=== PATIENT | male | born 1950 | race Caucasian/White ===

== ENCOUNTER → 2019-07-10 | Outpatient (CLI) | payer MEDICARE | END | disposition home or self-care (01) | LOC: SHCH 09:49 | PROVIDERS: ATTEND Internal Medicine Cardiovascular Disease | DX: I35.1 Nonrheumatic aortic (valve) insufficiency (principal); I34.0 Nonrheumatic mitral (valve) insufficiency | CPT/HCPCS: 93306 ==

== ENCOUNTER → 2023-03-31 | Outpatient (CLI) | payer MEDICARE | END | disposition home or self-care (01) | LOC: LAB 14:22 | PROVIDERS: ATTEND Internal Medicine Cardiovascular Disease | DX: R60.9 Edema, unspecified (principal); I50.32 Chronic diastolic (congestive) heart failure | CPT/HCPCS: 36415; 83735 ==

== ENCOUNTER → 2023-11-12 | Outpatient (CLI) | payer MEDICARE ==
[2023-11-12 15:53] LABS: % IRON SATURATION 4.7 % (30-44)
== END | disposition home or self-care (01) ==
LOC: LAB 14:42
PROVIDERS: ATTEND Internal Medicine Cardiovascular Disease
DX: I50.33 Acute on chronic diastolic (congestive) heart failure (principal); D64.9 Anemia, unspecified; Z79.899 Other long term (current) drug therapy
CPT/HCPCS: 36415; 82607; 82747; 83540; 83550; 83880

== ENCOUNTER → 2023-11-17 | Outpatient (CLI) | payer MEDICARE | END | disposition home or self-care (01) | LOC: LAB 10:00 | PROVIDERS: ATTEND Internal Medicine Cardiovascular Disease | DX: I50.33 Acute on chronic diastolic (congestive) heart failure (principal); D64.9 Anemia, unspecified | CPT/HCPCS: 82270 ==

== ENCOUNTER → 2023-11-18 | Outpatient (CLI) | payer MEDICARE | END | disposition home or self-care (01) | LOC: LAB 10:00 | PROVIDERS: ATTEND Internal Medicine Cardiovascular Disease | DX: I50.33 Acute on chronic diastolic (congestive) heart failure (principal) | CPT/HCPCS: 82270 ==

== ENCOUNTER → 2023-11-19 | Outpatient (CLI) | payer MEDICARE | END | disposition home or self-care (01) | LOC: LAB 10:00 | PROVIDERS: ATTEND Internal Medicine Cardiovascular Disease | DX: I50.33 Acute on chronic diastolic (congestive) heart failure (principal); D64.9 Anemia, unspecified; Z79.899 Other long term (current) drug therapy | CPT/HCPCS: 82270 ==

== ENCOUNTER → 2024-06-29 | Outpatient (CLI) | payer MEDICARE | END | disposition home or self-care (01) | LOC: SHCH 12:54 | PROVIDERS: ATTEND Internal Medicine Cardiovascular Disease | DX: I34.0 Nonrheumatic mitral (valve) insufficiency (principal) | CPT/HCPCS: 93306 ==

== ENCOUNTER → 2024-08-25 | Outpatient (CLI) | payer MEDICARE ==
[2024-08-25 15:32] LABS: BASOPHILS # (AUTO) 0.05 K/uL (0.00-0.20); BASOPHILS % (AUTO) 0.7 % (0.0-5.0); EOSINOPHILS # (AUTO) 0.26 K/uL (0.00-0.70); EOSINOPHILS % (AUTO) 3.6 % (0.0-8.0); HEMATOCRIT 32.5 % (42-54); IMMATURE GRANULOCYTE ABSOLUTE 0.03 K/uL (0-1); LYMPHOCYTES # (AUTO) 1.9 K/uL (1.0-4.8); LYMPHOCYTES % (AUTO) 25.6 % (21.0-51.0); MEAN CORPUSCULAR HEMOGLOBIN 28.1 pg (27.0-33.0); MEAN CORPUSCULAR HGB CONC 30.8 g/dL (32.0-36.0); MEAN CORPUSCULAR VOLUME 91.3 fL (79-99); MONOCYTES # (AUTO) 1.3 K/uL (0.1-1.0); MONOCYTES % (AUTO) 17.6 % (3.0-13.0); NEUTROPHILS # (AUTO) 3.8 K/uL (1.8-7.7); NEUTROPHILS % (AUTO) 52.1 % (40.0-77.0); PLATELET COUNT (AUTO) 206 K/uL (130-400); RED BLOOD CELL COUNT(AUTO) 3.56 MIL/uL (4.50-6.20); RED CELL DISTRIBUTION WIDTH 17.2 % (11.0-15.5); WHITE BLOOD COUNT (AUTO) 7.3 K/uL (4.8-10.8)
[2024-08-25 15:41] LABS: CREATININE 1.1 mg/dL (0.5-1.3); POTASSIUM 4.3 mmol/L (3.5-5.1)
[2024-08-25 16:35] LABS: B-TYPE NATRIURETIC PEPTIDE 1390 pg/mL (0-100)
== END | disposition home or self-care (01) ==
LOC: LAB 13:53
PROVIDERS: ATTEND Internal Medicine Cardiovascular Disease
DX: I10 Essential (primary) hypertension (principal)
CPT/HCPCS: 36415; 80048; 83880; 85025

== ENCOUNTER 2024-09-05 12:32 | Day surgery (SDC) | payer MEDICARE ==
--- NOTE | 2024-09-01 12:03 | EKG ---
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
[2024-09-01 12:09] LABS: BASOPHILS # (AUTO) 0.09 K/uL (0.00-0.20); BASOPHILS % (AUTO) 1.5 % (0.0-5.0); EOSINOPHILS % (AUTO) 6.5 % (0.0-8.0); HEMATOCRIT 32.6 % (42-54); IMMATURE GRANULOCYTE ABSOLUTE 0.01 K/uL (0-1); LYMPHOCYTES # (AUTO) 2.2 K/uL (1.0-4.8); LYMPHOCYTES % (AUTO) 36.1 % (21.0-51.0); MEAN CORPUSCULAR HEMOGLOBIN 28.7 pg (27.0-33.0); MEAN CORPUSCULAR HGB CONC 31.3 g/dL (32.0-36.0); MEAN CORPUSCULAR VOLUME 91.8 fL (79-99); MONOCYTES # (AUTO) 0.9 K/uL (0.1-1.0); NEUTROPHILS # (AUTO) 2.6 K/uL (1.8-7.7); NEUTROPHILS % (AUTO) 41.7 % (40.0-77.0); PLATELET COUNT (AUTO) 242 K/uL (130-400); RED BLOOD CELL COUNT(AUTO) 3.55 MIL/uL (4.50-6.20); RED CELL DISTRIBUTION WIDTH 17.2 % (11.0-15.5); WHITE BLOOD COUNT (AUTO) 6.2 K/uL (4.8-10.8)
[2024-09-01 12:11] LABS: APPEARANCE,URINE CLEAR (CLEAR); BILIRUBIN,URINE NEGATIVE (NEGATIVE); COLOR,URINE COLORLESS (YELLOW); GLUCOSE, URINE (UA) NEGATIVE (NEGATIVE); KETONES,URINE NEGATIVE (NEGATIVE); LEUKOCYTE ESTERASE ,URINE NEGATIVE Leu/uL (NEGATIVE); NITRATE,URINE NEGATIVE (NEGATIVE); OCCULT BLOOD,URINE NEGATIVE (NEGATIVE); PROTEIN,URINE NEGATIVE (NEGATIVE); UROBILINOGEN,URINE 0.2 mg/dL (0.2-1.0)
[2024-09-01 12:22] LABS: ADD UA MICROSCOPIC NO
[2024-09-01 12:35] LABS: INR 1.07 (0.85-1.15); PROTHROMBIN TIME 11.5 SEC (9.6-11.6)
[2024-09-01 12:36] LABS: PARTIAL THROMBOPLASTIN TIME 29.3 SEC (26.3-35.5)
[2024-09-01 12:42] LABS: CREATININE 1.1 mg/dL (0.5-1.3); POTASSIUM 4.5 mmol/L (3.5-5.1)
[2024-09-01 12:51] LABS: B-TYPE NATRIURETIC PEPTIDE 977 pg/mL (0-100)
[2024-09-01 12:55] VITALS: BP 145/48; PULSE 60; RESP 14; TEMP 97.5
--- NOTE | 2024-09-01 14:23 | HMCIMG ---
CHEST 1VW REASON: PREOP COMPARISON: 11/25/2007 FINDINGS: Single view of the chest was obtained. Lungs are clear. There is borderline heart size. There is no pulmonary vascular congestion. There are minimal bilateral pleural effusions. Mediastinum and bony thorax appear unremarkable. IMPRESSION: 1. Borderline heart size, there are minimal bilateral pleural effusions, there is no pulmonary vascular congestion.
--- NOTE | 2024-09-04 15:19 | NUR ---
RE: CXR REPORTED CXR RESULTS TO LOUIS GALVIN NP. NO NEW ORDERS RECEIVED.
[2024-09-05] VITALS (9 sets, daily range): BP systolic 142–174; BP diastolic 56–71; PULSE 65–86; RESP 13–22; TEMP 97–97.3
[~2024-09-05] VITALS: Ht 167.6 cm; Wt 71.4 kg
[~2024-09-05 12:32] MED LIST: AMLO-257 PO; ASCO1TAB40 PO; ASPI-1197 PO; ATOR10 PO; CARV12.511 PO; CHOL-34 PO; CLOM50CA PO; FURO40TA5 PO; LOSA-424 PO; OCTR30VI3 IM; SERT-440 PO; TELO250T PO
[2024-09-05] MEDS: 0.9%NACL 1000ML 1,000 ML IV SCH (13:09)
[2024-09-05] MEDS ORDERED: IOHEXOL-350 50ML VIAL IV ONE (16:29)
[2024-09-05] MEDS ORDERED: HEParin 10,000 UNIT/10ML (1,000 UNIT/ML) VIAL ONE (16:29)
[2024-09-05] MEDS ORDERED: LIDOCAINE HCL 400MG/20ML VIAL ONE (16:29)
[2024-09-05] MEDS ORDERED: HEParin-NS 1,000 UNIT/500 ML 1,000 ML IV ONE (16:29)
[2024-09-05] MEDS ORDERED: IOHEXOL 350 MG/ML 100ML INFUS..BTL IV ONE (16:29)
[2024-09-05] MEDS ORDERED: NITROGLYCERIN 50MG VIAL ONE (16:30)
[2024-09-05] MEDS ORDERED: BIVALIRUDIN 250 MG/VIAL IV ONE (16:32)
[2024-09-05] MEDS ORDERED: FENTanyl CITRate PF 50 MCG/1 ML 2ML VIAL ONE (16:35)
[2024-09-05] MEDS ORDERED: MIDAZOLAM HCL 1 MG/ML 2ML VIAL ONE (16:35)
--- NOTE | 2024-09-05 18:41 | PRN ---
DATE OF PROCEDURE: 09/05/2024 PROCEDURE PERFORMED: RIGHT AND LEFT HEART CATHETERIZATION, LEFT VENTRICULOGRAM, AORTOGRAM, LEFT AND RIGHT SELECTIVE CORONARY ANGIOGRAM, RIGHT COMMON FEMORAL ANGIOGRAM, PERCLOSE SUTURE CLOSURE OF THE RIGHT COMMON FEMORAL ARTERY, AND CONSCIOUS SEDATION INSPECTOR SCREEN PRINTING: Tristan Anthony MD, [facility] INDICATION: Acute on chronic systolic congestive heart failure, [id number] MR by 2D echo 06/29/2024, mild aortic regurgitation by 2D echo 06/29/2024, LVEF estimate of 40-45% by biplane Rankin method PROCEDURE NOTE: After informed consent was obtained the patient was prepped and draped in the usual sterile fashion. A seven [place] venous sheath with hemostatic valve was inserted into the right femoral vein using micropuncture technique with ultrasound guidance and a six [place] arterial sheath in the right common femoral artery using ultrasound guidance and micropuncture technique. This was performed after fluoroscopic identification of bony landmarks to facilitate a more accurate puncture of the right common femoral artery. The arterial and venous sheaths were aspirated and flushed. A seven [place] S tip [place] catheter was advanced using balloon floatation to the right heart with pressure measurements in the RA, RV, PA, and pulmonary capillary wedge positions. A 6 [place] pigtail catheter was then advanced over a J-tipped guidewire to the ascending aorta and was prolapsed into the left ventricle. The catheter was aspirated and flushed and pressure measurements were obtained including simultaneous pressure measurements of LVEDP and wedge pressure. A left ventriculogram was then performed in a 30 NJ projection. A pullback procedure was then performed, and an aortic root injection was performed in the same 30 degree NJ projection. The pigtail was then removed over a J-tip guidewire. A 6F JL-4 was then advanced to the ascending aorta over a J-tipped guidewire, was aspirated and flushed, and was used for selective left coronary angiograms in multiple obliquities. A JR-4 was advanced in a similar fashion to the ascending aorta over a J-tipped guidewire and was used for selective right coronary angiograms in multiple obliquities with findings as outlined below. A right common femoral angiogram was performed to assess suitability for Perclose suture closure and the Perclose device was deployed in standard fashion. Perclose suture closure was successful without bleeding or hematoma. The patient tolerated the procedure well and was returned to the holding area in stable condition. FINDINGS: RIGHT HEART CATHETERIZATION: RA pressure was 18 mm of mercury on the A-wave, 14 mm of mercury on the V-wave, and mean RA pressure was 12 mm of mercury. RV pressure was 66/14 mm of mercury. PA pressure was 66/30 mm of mercury with a mean PA pressure of 43 mm of mercury. Pulmonary capillary wedge pressure was 28 mm of mercury on the A-wave, 50 mm of mercury on the V-wave, and the mean pulmonary capillary wedge pressure was 30 mm of mercury. Cardiac output/cardiac input (thermodilution): 4.5 liters/minute with cardiac index of 2.4 liters/minute per meter squared Cardiac output/cardiac index (Janae): 5.6 liters/minute with cardiac index of 3.1 liters/minute per meter squared LEFT HEART HEMODYNAMICS: LVEDP was 15 mm of mercury prior to LV-gram in 17 mm of mercury after LV-gram. No aortic valve gradient on pullback procedure. LEFT VENTRICULOGRAM: The left ventriculogram in a 30 degree NJ projection demonstrated mild global hypokinesis with an LVEF of 45 to 50% by single plane planimetry. There was 2+ to 3+ mitral regurgitation by left ventriculogram. AORTIC ROOT INJECTION: The aortic root injection (20 mL per second for 40 seconds) demonstrated 1+ aortic insufficiency. CORONARY ANGIOGRAM: LEFT MAIN: Normal. LEFT ANTERIOR DESCENDING: The LAD and diagonal branches were normal. LEFT CIRCUMFLEX: The left circumflex was nondominant and normal. RAMUS INTERMEDIATE BRANCH: There were two large ramus intermediate branches which were normal. RIGHT CORONARY ARTERY: The right coronary artery was dominant and normal as were the PDA and posterolateral branches. IMPRESSION: 1. Mild global hypokinesis of the left ventricle with LVEF of 45-50% by single plane planimetry 2. 2+ to 3+ mitral regurgitation (closer to 3+). 3. 1+ aortic regurgitation. 4. Severe elevation of pulmonary capillary wedge V waves to 50 mm of mercury, with mean pulmonary capillary wedge pressure of 30 mm of mercury. 5. Normal cardiac output and cardiac index of 5.6 liters/minute and 3.1 liters/minute per meter squared by thermodilution 6. Normal coronary arteries. 7. 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 No history of pulmonary metastases, by recent PET scan. Carcinoid heart disease. RECOMMENDATION: Evaluate for MitraClip versus mitral valve repair/replacement for carcinoid tumor induced mitral valvular disease. Aortic insufficiency appears to be mild. COMPLICATIONS OF PROCEDURE: None, the patient tolerated the procedure well and was returned to his room in stable condition. HEMOSTASIS: Perclose suture closure successful without bleeding or hematoma. ESTIMATED BLOOD LOSS: 10 mL. CONTRAST TOTAL: 180 mL. TRISTAN ANTHONY MD Sep 05, 2024 18:41
--- NOTE | 2024-09-05 21:50 | NUR ---
d/c pt and spouse given d/c instructions. rt groin free from hematoma or bleeding. pt taken out via w/c in no distress. spouse at side
== END 2024-09-05 21:50 | disposition home or self-care (01) ==
LOC: DAH 12:32
PROVIDERS: ATTEND Internal Medicine Cardiovascular Disease
DX: I11.0 Hypertensive heart disease with heart failure (principal); I08.0 Rheumatic disorders of both mitral and aortic valves; I50.23 Acute on chronic systolic (congestive) heart failure; E34.0 Carcinoid syndrome; I25.10 Atherosclerotic heart disease of native coronary artery without angina pectoris; I44.7 Left bundle-branch block, unspecified; I49.3 Ventricular premature depolarization; J90 Pleural effusion, not elsewhere classified; Z82.49 Family history of ischemic heart disease and other diseases of the circulatory system; F42.9 Obsessive-compulsive disorder, unspecified; Z85.46 Personal history of malignant neoplasm of prostate; Z85.05 Personal history of malignant neoplasm of liver; Z79.82 Long term (current) use of aspirin; Z79.899 Other long term (current) drug therapy
CPT/HCPCS: 80048; 83880; 85025; 85610; 85730; 81003; 36415; 71045; 93005; 93460; C1894 ×3; C1769; C1760; Q9965 ×2; J3010; J3490 ×2; J2250; J1644; Q9967 ×2; A4215; A4222; A4221; A4663; A4216; A4606; A4223 ×3; 99156; 99157; J0583

== ENCOUNTER → 2024-10-06 | Outpatient (CLI) | payer MEDICARE ==
[2024-10-06 12:56] LABS: CREATININE 1.6 mg/dL (0.5-1.3); POTASSIUM 4.8 mmol/L (3.5-5.1)
== END | disposition home or self-care (01) ==
LOC: LAB 11:41
PROVIDERS: ATTEND Internal Medicine Gastroenterology
DX: R10.30 Lower abdominal pain, unspecified (principal)
CPT/HCPCS: 36415; 80048

== ENCOUNTER → 2024-10-12 | Outpatient (CLI) | payer MEDICARE ==
[~2024-10-12] MED LIST changes: +IOHEXOL 350 MG/ML 100ML INFUS..BTL IV ONE
--- NOTE | 2024-10-12 12:03 | HMCIMG ---
CT ABDOMEN/PELVIS W/CONTRAST HISTORY: Rectal bleeding COMPARISON: None TECHNIQUE: Multiple sequential axial images of the abdomen and pelvis were obtained from the dome of the diaphragm through symphysis pubis. Patient was given 75 cc of Omnipaque through intravenous route. Oral contrast was given. FINDINGS: Tiny bilateral pleural effusions are seen. Coronary arterial calcifications are seen. There is no evidence of parenchymal disease or pulmonary nodule of the visualized lower lungs. Degenerative changes of the thoracolumbar spine are present. The heart is not enlarged. There is right hepatic mass measuring 9 x 9 cm. Stomach is poorly distended. No bowel obstruction is seen. Spleen, adrenal glands and pancreas are unremarkable. There are mild bilateral hydronephrosis may be related to bladder outlet obstruction. No evidence of renal stone is seen. Fecal material is seen in the colon. There are normal size retroperitoneal and mesenteric lymph nodes. No ascites is seen. Atherosclerotic changes are present. Pelvic sidewalls are symmetric bilaterally. Bladder is moderately distended with circumferential wall thickening measuring 4 mm. If there is clinical suspicion for cystitis, urinalysis correlation may be helpful. Mass lesion not excluded. IMPRESSION: 1. Bladder is moderately distended with circumferential wall thickening measuring 4 mm. If there is clinical suspicion for cystitis, urinalysis correlation may be helpful. Mass lesion not excluded. There are mild bilateral hydronephrosis may be related to bladder outlet obstruction. CT was performed with one or more following dose reduction techniques: automated exposure control, adjustment of the mA and kv according to patient's size, or use of a iterative reconstruction technique.
== END | disposition home or self-care (01) ==
LOC: RAH 10:50
PROVIDERS: ATTEND Internal Medicine Gastroenterology
DX: N13.30 Unspecified hydronephrosis (principal); I25.10 Atherosclerotic heart disease of native coronary artery without angina pectoris; R10.30 Lower abdominal pain, unspecified; M47.815 Spondylosis without myelopathy or radiculopathy, thoracolumbar region; K62.5 Hemorrhage of anus and rectum
CPT/HCPCS: 74177; Q9967

== ENCOUNTER → 2024-11-22 | Outpatient (CLI) | payer MEDICARE ==
[~2024-11-22] MED LIST changes: -ASCO1TAB40 PO; -ASPI-1197 PO; +ASPI-1443 PO; -ATOR10 PO; +ATOR20TA65 PO; -CHOL-34 PO; +FURO20TA4 PO; -FURO40TA5 PO; -IOHEXOL 350 MG/ML 100ML INFUS..BTL IV ONE; -LOSA-424 PO; +LOSA1TAB42 PO; +OCTR20VI3 IM; -OCTR30VI3 IM
--- NOTE | 2024-11-22 12:07 | HMCIMG ---
PA AND LATERAL CHEST RADIOGRAPH INDICATION: Shortness of breath COMPARISON: 09/01/2024 FINDINGS: Heart size is normal. Mild calcific plaque is present along the aortic arch almeida. The pulmonary vascularity and jeremiah appear normal. Both costophrenic angles are blunted and subjacent linear opacities without consolidation. No pneumothorax detected. Nonspecific 1.6 cm x 0.8 cm calcific-type foreign body projects over the medial left hemidiaphragm on the lateral view and near the cardiophrenic angle on the frontal view. IMPRESSION: Small bilateral pleural effusions with subjacent passive atelectasis. Nonspecific 1.6 cm x 0.8 cm calcific-type foreign body projects over the medial left hemidiaphragm on the lateral view and near the cardiophrenic angle on the frontal view.
== END | disposition home or self-care (01) ==
LOC: RAH 11:39
PROVIDERS: ATTEND Internal Medicine Cardiovascular Disease
DX: J90 Pleural effusion, not elsewhere classified (principal); R06.02 Shortness of breath; I70.0 Atherosclerosis of aorta; J98.11 Atelectasis
CPT/HCPCS: 71046

== ENCOUNTER → 2024-12-12 | Outpatient (CLI) | payer MEDICARE ==
[2024-12-12 16:33] LABS: MAGNESIUM 1.7 mg/dL (1.80-2.40); POTASSIUM 4.9 mmol/L (3.5-5.1)
== END | disposition home or self-care (01) ==
LOC: LAB 14:58
PROVIDERS: ATTEND Internal Medicine Cardiovascular Disease
DX: I11.0 Hypertensive heart disease with heart failure (principal); I50.43 Acute on chronic combined systolic (congestive) and diastolic (congestive) heart failure
CPT/HCPCS: 36415; 80048; 83735